=== PATIENT | female | born 1965 | race Hispanic/Latino ===

== ENCOUNTER 2018-01-04 12:47 | Outpatient (CLI) | payer OTHER | END 2018-01-04 12:48 | disposition home or self-care (01) | LOC: BICRAD 12:47 | PROVIDERS: ATTEND Family Medicine | DX: M25.551 Pain in right hip (principal) ==

== ENCOUNTER 2018-03-23 13:26 | Emergency (ER) | payer OTHER, SELFPAY ==
[2018-03-23] MEDS ORDERED: Metoclopramide HCl 10 MG/2 ML VIAL ONE ×2 (15:37→15:45)
[2018-03-23] MEDS ORDERED: diphenhydrAMINE 50 MG/ML VIAL ONE ×2 (15:37→15:45)
[2018-03-23] MEDS ORDERED: Ketorolac Tromethamine 30 MG/ML VIAL ONE (17:21)
--- NOTE | 2018-03-23 17:56 | CT ---
NONCONTRAST CT HEAD: 03/23/18 HISTORY: Headache. COMPARISON: 01/18/10. FINDINGS: There is no evidence a hemorrhage, acute infarction, mass effect or midline shift. The ventricular sy stem is normal in size, shape and position. Punctate hyperdense focus in the left basal ganglia is ag ain seen and probably related to basal ganglia calcification given stability over this period of time . CT of the head is stable from the prior study. IMPRESSION: No acute intracranial abnormality. POS: [facility]
== END 2018-03-23 17:48 | disposition home or self-care (01) ==
LOC: ERS 13:26
DX: R51 Headache (principal); F41.9 Anxiety disorder, unspecified
CPT/HCPCS: 70450; 96365; 96366; 96375; J1200; J1885; J2765

== ENCOUNTER 2018-06-06 19:03 | Emergency (ER) | payer SELFPAY ==
[2018-06-06] MEDS ORDERED: predniSONE 20 MG TAB ONE (19:13)
--- NOTE | 2018-06-06 20:40 | RAD ---
TWO VIEWS RIGHT HIP 06/06/18 HISTORY: Right hip pain which has gotten worse over the last month. FINDINGS: There is no evidence of a fracture, dislocation, or other osseous abnormality involving the right hip . Multiple calcifications overlie the pelvis which likely represent phleboliths. Multiple phleboliths were seen on prior CT pelvis in 2011. IMPRESSION: No acute osseous abnormality right hip. POS: [facility]
== END 2018-06-06 19:48 | disposition home or self-care (01) ==
LOC: SCSER 19:03
DX: M70.71 Other bursitis of hip, right hip (principal); F41.9 Anxiety disorder, unspecified
CPT/HCPCS: J7506

== ENCOUNTER 2020-02-25 09:35 | Outpatient (CLI) | payer OTHER ==
--- NOTE | 2020-02-25 10:09 | RAD ---
XR Hip Lt 2-3 View HISTORY: Left hip pain FINDINGS: No fracture or dislocation is identified. There are mild degenerative changes.
== END 2020-02-25 09:36 | disposition home or self-care (01) ==
LOC: BICRAD 09:35
PROVIDERS: ATTEND Family Medicine
DX: M25.552 Pain in left hip (principal)

== ENCOUNTER 2020-04-28 08:19 | Outpatient (CLI) | payer OTHER ==
--- NOTE | 2020-04-28 09:44 | RAD ---
LEFT HAND THREE VIEWS: History: Pain in left hand. FINDINGS: Carpals appear normally aligned. There is mild degenerative change at the first carpal metacarpal casey nt with spurring and joint space narrowing. MCP and IP joints unremarkable. Deformity of tuft of the distal phalanx of the fifth finger may indicate old injury. IMPRESSION: No acute process identified. POS: [facility]
--- NOTE | 2020-04-28 10:13 | RAD ---
RIGHT HAND: History: Hand pain and numbness FINDINGS: There are mild arthritic changes seen with degenerative changes at the first carpal metacarpal joint space level. Minimal changes of the interphalangeal joints. No erosive bony change. IMPRESSION: Mild arthritic change of the hand. POS: [facility]
== END 2020-04-28 08:20 | disposition home or self-care (01) ==
LOC: BICRAD 08:19
PROVIDERS: ATTEND Family Medicine
DX: M79.641 Pain in right hand (principal); M79.642 Pain in left hand; M19.041 Primary osteoarthritis, right hand

== ENCOUNTER 2021-03-22 08:34 | Outpatient (CLI) | payer OTHER | END 2021-03-22 08:35 | disposition home or self-care (01) | LOC: BICULT 08:34 | PROVIDERS: ATTEND Family Medicine | DX: R74.8 Abnormal levels of other serum enzymes (principal); N28.89 Other specified disorders of kidney and ureter; R93.2 Abnormal findings on diagnostic imaging of liver and biliary tract; Z90.49 Acquired absence of other specified parts of digestive tract | CPT/HCPCS: 76705 ==